=== PATIENT | male | born 1945 | race Caucasian/White ===

== ENCOUNTER → 2025-03-23 | Outpatient (CLI) | payer BC, MEDICAID ==
[~2025-03-23] VITALS: Ht 167.6 cm; Wt 113.4 kg
[2025-03-23 10:54] LABS: TOTAL HEMOGLOBIN 15.7 G/dl (13.5-17.5)
[2025-03-23] MEDS: albuterol 2.5 MG/3 ML nebule NEB ONE (11:28)
[2025-03-23 11:30] VITALS: PULSE 59; RESP 18; O2SAT 94
[2025-03-23 11:42] VITALS: PULSE 60; RESP 15
--- NOTE | 2025-03-23 16:35 | PROCEDURE NOTE - Respiratory ---
Procedure Note-Respiratory Providers to Copies To 1: CLIF MENDIOLA Procedure Name: This is a complete pulmonary function study dated March 23, 2025. Hemoglobin measurement was done as part of the study. Spirometry measurements: There is mild reduction in both the forced vital capacity and the FEV1 measurements. The FEV1 ratio is normal. Some of the flow rates show mild reduction. After inhaled bronchodilator was administered, some of the flow rates show slight improvement. Spirometry documents obstructive ventilatory defect in the mild category. Lung volume measurements: All of the major lung volume determinations are normal. Lung diffusion measurement: The DLCO measurement is in the normal range. It is noted that the KVO measurement is excellent. There is some decrease in the alveolar volume. It is noted that the hemoglobin measurement is normal. Airway resistance measurement: The airway resistance is normal. Overall conclusion: This study shows mild abnormality. There is evidence for obstructive ventilatory defect in the mild category. There is no evidence for restrictive ventilatory defect based on the normal total lung capacity and FRC measurements. The lung diffusion capacity is normal. We have no previous studies for comparison. This patient may show clinical improvement through the use of daily bronchodilator medication. JAC VILLA MD Mar 23, 2025 16:35
== END | disposition home or self-care (01) ==
LOC: RT 10:26
PROVIDERS: ATTEND Physician Assistant
DX: J44.9 Chronic obstructive pulmonary disease, unspecified (principal)
CPT/HCPCS: 85018; 94060; 94727; 94729; 94760

== ENCOUNTER 2025-04-24 08:15 | Day surgery (SDC) | payer BC, MEDICAID ==
[~2025-04-24] VITALS: Ht 175.3 cm; Wt 118.5 kg
[~2025-04-24 08:15] MED LIST: AMIO200T73 PO; APIX5TAB3 PO; ATOR20TA66 PO; EMPA25TA PO; FINA5TAB11 PO; TAMS-55; TIRZ15PE; VALS320T17 PO
[2025-04-24 08:46] VITALS: BP 123/76; PULSE 60; RESP 12; TEMP 98.2; O2SAT 98
[2025-04-24] MEDS ORDERED: fentaNYL/PF 50MCG/1 ML 2ML syringe IV ONE (08:55)
[2025-04-24] MEDS ORDERED: normal saline 1000ml 1,000 ML IV SCH (08:55)
[2025-04-24] MEDS ORDERED: MIDAZolam 1mg/ml 10ml vial IV ONE (08:55)
[2025-04-24 09:14] LABS: MEAN PLATELET VOLUME 8.8 FL (7.4-10.4); RED CELL DISTRIBUTION WIDTH 15.0 % (11.5-14.5)
[2025-04-24 09:23] LABS: CREATININE 1.20 MG/DL (0.60-1.10); TOTAL CARBON DIOXIDE 26.3 MMOL/L (24-32); eCRCL 49 ML/MIN; eGFR 58 ML/MIN
[2025-04-24 09:27] LABS: APTT 29 SECONDS (22-32); INR 1.1 INR
[2025-04-24] MEDS ORDERED: midazolam 1 mg/ML 2ml injection ONE (12:16)
[2025-04-24] MEDS ORDERED: fentaNYL/PF 50MCG/1 ML 2ML syringe ONE (12:16)
[2025-04-24] MEDS ORDERED: atropine 0.1mg/ml 10ml syringe ONE (12:16)
[2025-04-24 12:50] VITALS: BP 120/78; PULSE 79; RESP 14; RESP 18; O2SAT 99
[2025-04-24 13:05] VITALS: BP 116/77; PULSE 75; RESP 17; O2SAT 96
--- NOTE | 2025-04-24 13:06 | ELECTROCARDIOGRAPH REPORT ---
[facility] Test Date: 2025-04-24 Test Time: 13:00:31 Pat Name: FABIAN PRIEST Department: [facility] Patient ID: [id number] Room: Gender: M Stock Worker: GONZALO : 1945 Requested By: REJI LANDA Order Number: [id number] Reading MD: Dr. Alek Braun Measurements Intervals [place] Rate: 74 P: 56 NM: 206 QRS: -77 QRSD: 167 T: 102 QT: 476 QTc: 529 Interpretive Statements Atrial-sensed ventricular-paced rhythm No further analysis attempted due to paced rhythm Electronically Signed On 04-25-2025 13:23:[address] Alek Braun Please click the below link to view image of tracing.
[2025-04-24 13:20] VITALS: BP 97/67; PULSE 74; RESP 18; O2SAT 98
== END 2025-04-24 13:30 | disposition home or self-care (01) ==
LOC: SSTAY O 08:15
PROVIDERS: ATTEND Student in an Organized Health Care Education/Training Program
DX: I48.91 Unspecified atrial fibrillation (principal); I48.92 Unspecified atrial flutter; I10 Essential (primary) hypertension; E78.00 Pure hypercholesterolemia, unspecified; Z86.73 Personal history of transient ischemic attack (TIA), and cerebral infarction without residual deficits; Z79.01 Long term (current) use of anticoagulants; Z79.899 Other long term (current) drug therapy
CPT/HCPCS: 36415; 80048; 85025; 85610; 85730; 92960; 93005; J2250; J3010; J7030; 99152; 99153; J0461